=== PATIENT | male | born 1955 | race Caucasian/White ===

== ENCOUNTER 2022-03-14 21:51 | Emergency (ER) | payer MEDICARE, OTHER ==
[~2022-03-14] VITALS: Ht 175.3 cm; Wt 95.3 kg
--- NOTE | 2022-03-14 22:34 | ED General ---
General Chief Complaint: General Problems/Pain Stated Complaint: WHOLE L SIDE PAIN History of Present Illness Date Seen by Provider: Mar 14, 2022 Time Seen by Provider: 22:23 Initial Comments 67-year-old male with no known significant PMH except arthritis, and not on any medication, is here with complaints of left-sided pain and has lower neck to his feet, which began Monday (3 days ago). Patient has been having associated ear pain which is more on the left since Monday. Patient states that he also has tingling in his left upper and lower extremities since Monday. Patient has been moving heavy furniture all day on Monday and Monday. 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 Today patient feels tired and is able to ambulate, but very slowly. Denies chest pain, shortness of breath, dizziness, headache, fever, cough, diarrhea, abdominal pain Allergies and Home Medications Allergies Coded Allergies: No Known Drug Allergies (Unverified , 03/15/22) Patient Home Medication List Home Medication List Reviewed: Yes Review of Systems Review of Systems Constitutional: no symptoms reported EENTM: no symptoms reported Respiratory: no symptoms reported Cardiovascular: no symptoms reported Gastrointestinal: no symptoms reported Genitourinary: no symptoms reported Musculoskeletal: joint pain, muscle pain, muscle stiffness, muscle weakness Skin: no symptoms reported Psychiatric/Neurological: Tingling Hematologic/Lymphatic: No Symptoms Reported Immunological/Allergic: no symptoms reported Past Umawbvb-Nahwmn-Qszkba Hx Patient Social History Tobacco Use?: Yes Tobacco type used: Cigarettes Smoking Status: Current Everyday Smoker Use of E-Cig and/or Vaping dev: No Substance use?: No Alcohol Use?: No Pt feels they are or have been: No Immunizations Up To Date Influenza Vaccine Up-to-Date: No; Not Current First/Initial COVID19 Vaccinat: N/A Past Medical History Surgery/Hospitalization HX: DENIES Physical Exam Vital Signs Vital Signs - First Documented 03/14/22 22:07 Temp 36.6 Pulse 80 Resp 15 B/P (MAP) 174/90 (118) Pulse Ox 97 O2 Delivery Room Air Capillary Refill : Height, Weight, BMI Height: '" Weight: lbs. oz. kg; BMI Method: General Appearance: No Apparent Distress, WD/WN HEENT: PERRL/EOMI, Pharynx Normal, Moist Mucous Membranes, Other (mild TM erythema bilaterally ) Neck: Full Range of Motion, Normal Inspection, Non Tender, Supple Respiratory: Chest Non Tender, Lungs Clear, Normal Breath Sounds Cardiovascular: Regular Rate, Rhythm, No Edema, No Murmur Gastrointestinal: Normal Bowel Sounds, Non Tender, Soft Back: Normal Inspection, No CVA Tenderness, No Vertebral Tenderness Extremity: Normal Inspection, Normal Range of Motion, Non Tender, No Calf Tenderness, No Pedal Edema Neurologic/Psychiatric: Alert, Oriented x3, No Motor/Sensory Deficits, Normal Mood/Affect, lidder II-XII Norm as Tested Skin: Normal Color Lymphatic: No Adenopathy Progress/Results/Core Measures Suspected Sepsis SIRS Temperature: Pulse: Respiratory Rate: Laboratory Tests 03/14/22 22:15: White Blood Count 9.2 Blood Pressure / Mean: Laboratory Tests 03/14/22 22:15: Creatinine 0.97, INR Comment 0.9, Platelet Count 221, Total Bilirubin 0.3 Results/Orders Lab Results Laboratory Tests Test 03/14/22 22:15 03/15/22 00:16 03/15/22 00:20 Range/Units White Blood Count 9.2 4.3-11.0 10^3/uL Red Blood Count 5.11 4.30-5.52 10^6/uL Hemoglobin 15.9 13.3-17.7 g/dL Hematocrit 46 40-54 % Mean Corpuscular Volume 90 80-99 fL Mean Corpuscular Hemoglobin 31 25-34 pg Mean Corpuscular Hemoglobin Concent 35 32-36 g/dL Red Cell Distribution Width 12.3 10.0-14.5 % Platelet Count 221 130-400 10^3/uL Mean Platelet Volume 9.3 9.0-12.2 fL Immature Granulocyte % (Auto) 0 % Neutrophils (%) (Auto) 62 42-75 % Lymphocytes (%) (Auto) 29 12-44 % Monocytes (%) (Auto) 7 0-12 % Eosinophils (%) (Auto) 2 0-10 % Basophils (%) (Auto) 0 0-10 % Neutrophils # (Auto) 5.7 1.8-7.8 10^3/uL Lymphocytes # (Auto) 2.7 1.0-4.0 10^3/uL Monocytes # (Auto) 0.6 0.0-1.0 10^3/uL Eosinophils # (Auto) 0.2 0.0-0.3 10^3/uL Basophils # (Auto) 0.0 0.0-0.1 10^3/uL Immature Granulocyte # (Auto) 0.0 0.0-0.1 10^3/uL Prothrombin Time 12.9 12.2-14.7 SEC INR Comment 0.9 0.8-1.4 Activated Partial Thromboplast Time 30 24-35 SEC D-Dimer 0.35 0.00-0.49 UG/ML Sodium Level 139 135-145 MMOL/L Potassium Level 4.0 3.6-5.0 MMOL/L Chloride Level 103 98-107 MMOL/L Carbon Dioxide Level 24 21-32 MMOL/L Anion Gap 12 5-14 MMOL/L Blood Urea Nitrogen 9 7-18 MG/DL Creatinine 0.97 0.60-1.30 MG/DL Estimat Glomerular Filtration Rate 87 BUN/Creatinine Ratio 9 Glucose Level 98 70-105 MG/DL Calcium Level 9.3 8.5-10.1 MG/DL Corrected Calcium 9.4 8.5-10.1 MG/DL Total Bilirubin 0.3 0.1-1.0 MG/DL Aspartate Amino Transf (AST/SGOT) 13 5-34 U/L Alanine Aminotransferase (ALT/SGPT) 12 0-55 U/L Alkaline Phosphatase 72 40-136 U/L Troponin I < 0.028 <0.028 NG/ML Total Protein 6.9 6.4-8.2 GM/DL Albumin 3.9 3.2-4.5 GM/DL Glucometer 93 70-110 MG/DL Urine Color YELLOW Urine Clarity CLEAR Urine pH 7.5 5-9 Urine Specific [place] <=1.005 1.016-1.022 Urine Protein NEGATIVE NEGATIVE Urine Glucose (UA) NEGATIVE NEGATIVE Urine Ketones NEGATIVE NEGATIVE Urine Nitrite NEGATIVE NEGATIVE Urine Bilirubin NEGATIVE NEGATIVE Urine Urobilinogen 0.2 < = 1.0 MG/DL Urine Leukocyte Esterase NEGATIVE NEGATIVE Urine RBC (Auto) NEGATIVE NEGATIVE Urine RBC NONE /HPF Urine WBC NONE /HPF Urine Squamous Epithelial Cells RARE /HPF Urine Crystals NONE /LPF Urine Bacteria NEGATIVE /HPF Urine Casts NONE /LPF Urine Mucus NEGATIVE /LPF Urine Culture Indicated NO SARS-CoV-2 RNA (RT-PCR) Not Detected Not Detecte My Orders Orders - MARCELLA SHERIDAN MD Cbc With Automated Diff (03/14/22 22:35) Protime With Inr (03/14/22 22:35) Partial Thromboplastin Time (03/14/22 22:35) Comprehensive Metabolic Panel (03/14/22 22:35) Fibrin Degradation Products (03/14/22 22:35) Troponin I [place] (03/14/22 22:35) Ua Culture If Indicated (03/14/22 22:35) Chest 1 View, Ap/Pa Only (03/14/22 22:35) Ekg Tracing (03/14/22 22:35) Accucheck Stat ONCE (03/14/22 22:35) Ed Iv/Invasive Line Start (03/14/22 22:35) Vital Signs Stroke Patient Q15M (03/14/22 22:35) Monitor-Rhythm Ecg Trace Only (03/14/22 22:35) Dysphagia Screening Tool Q10MX1 (03/14/22 22:35) Ct Head/Cervical Spine Wo (03/14/22 22:34) Covid 19 Inhouse Test (03/15/22 00:06) Ct Angio Head/Neck (03/15/22 00:01) Iohexol Injection (Omnipaque 350 Mg/Ml 1 (03/15/22 01:00) Sodium Chloride Flush (Catheter Flush Sy (03/15/22 01:00) Ns (Ivpb) (Sodium Chloride 0.9% Ivpb Bag (03/15/22 01:00) Medications Given in ED Current Medications Medications Dose Ordered Sig/Annalisa Route Start Time Stop Time Status Last Admin Dose Admin Iohexol 100 ml ONCE ONCE IV 03/15/22 01:00 03/15/22 01:01 DC 03/15/22 01:03 75 ML Sodium Chloride 10 ml NEEDED PRN IV 03/15/22 01:00 03/15/22 01:03 10 ML Sodium Chloride 100 ml ONCE ONCE IV 03/15/22 01:00 03/15/22 01:01 DC 03/15/22 01:03 80 ML Vital Signs/I&O 03/14/22 22:07 Temp 36.6 Pulse 80 Resp 15 B/P (MAP) 174/90 (118) Pulse Ox 97 O2 Delivery Room Air Capillary Refill : Progress Note : Progress Note 1. MUSCLE STRAIN: - Ibuprofen as needed pain, Lidoderm patch which is available [id number] -Follow-up with PCP within the next 3 days. -Patient is ruled out for stroke 2. STROKE RULE OUT: - CT HEAD & NECK WITHOUT CONTRAST: no acute findings except degeneration of C5- C6 - CTA HEAD/ NECK: normal - Troponin & EKG: non-acute - Labs unremarkable - CXR: unremarkable Diagnostic Imaging Diagonstic Imaging: CT Plain Films/CT/US/NM/MRI: head Comments [facility], [place] NAME: JUAN CARLOS ROSARIO [facility] REC#: [id number] PT STATUS: REG ER : 1955 PHYSICIAN: MARCELLA SHERIDAN MD ADMIT DATE: 03/14/22/ER Draft Date of Exam:03/14/22 CT HEAD/CERVICAL SPINE WO PROCEDURE: CT head and CT cervical spine without contrast. TECHNIQUE: Multiple contiguous axial images were obtained through the brain and cervical spine without the use of intravenous contrast. Sagittal and coronal reformations through the cervical spine were then performed. Auto Exposure Controls were utilized during the CT exam to meet ALARA standards for radiation dose reduction. DATE: March 14, 2022. COMPARISON: None. INDICATION: 67-year-old male, left-sided pain and weakness. Tingling of the head and neck. Severe headache. FINDINGS: The ventricles and cerebral spinal fluid spaces are of normal size and configuration for the patient's age. There is no mass effect or midline shift. There is no acute intracranial hemorrhage. There is no abnormal extra-axial fluid collection. The visualized portions of the paranasal sinuses, mastoid air cells and middle ears are well aerated. There is no identified facet joint subluxation or dislocation. There is no asymmetric widening of the cervical disc spaces. There is no prominent prevertebral soft tissue swelling. There is mild disc height loss at C4-C5 and C5-C6. There is a posterior disc osteophyte complex at C5-C6. CT is limited for assessment of disc pathology as well as additional non-bony causes of pathology in the spinal canal. There is no identified acute fracture of the cervical spine. The visualized portions of the lung apices are grossly clear. There are carotid vascular calcifications on the left. IMPRESSION: 1. No identified acute intracranial abnormality. 2. No identified acute abnormality of the cervical spine. 3. Disc degenerative changes of the cervical spine most notable at C5-C6. Dictated on workstation # [id number] Dict: 03/14/22 2257 Trans: 03/14/22 2304 [id number] Interpreted by: KIARA LOONEY MD Electronically signed by: Departure Impression Primary Impression: Strain of muscle, fascia and tendon of lower back, initial encounter Additional Impression: Disease ruled out after examination Disposition: HOME, SELF-CARE Condition: Stable Departure-Patient Inst. Referrals: NO,LOCAL PHYSICIAN (PCP/Family) Primary Care Physician Patient Instructions: Back Muscle Strain (DC), Back Muscle Strain, Muscle Strain ED Add. Discharge Instructions: Ibuprofen as needed pain, Lidoderm patch which is available [id number] -Follow-up with PCP within the next 3 days. -Patient is ruled out for stroke -Return to ER symptoms worsen or continue All discharge instructions reviewed with patient and/or family. Voiced underst anding. MARCELLA SHERIDAN MD Mar 14, 2022 22:34
[2022-03-14 22:42] LABS: BASOPHILS % (AUTO) 0 % (0-10); EOSINOPHILS # (AUTO) 0.2 10^3/uL (0.0-0.3); EOSINOPHILS % (AUTO) 2 % (0-10); HEMATOCRIT 46 % (40-54); HEMOGLOBIN 15.9 g/dL (13.3-17.7); LYMPHOCYTES # (AUTO) 2.7 10^3/uL (1.0-4.0); LYMPHOCYTES % (AUTO) 29 % (12-44); MEAN CORPUSCULAR HEMOGLOBIN 31 pg (25-34); MEAN CORPUSCULAR HGB CONC 35 g/dL (32-36); MEAN CORPUSCULAR VOLUME 90 fL (80-99); MEAN PLATELET VOLUME 9.3 fL (9.0-12.2); MONOCYTES # (AUTO) 0.6 10^3/uL (0.0-1.0); MONOCYTES % (AUTO) 7 % (0-12); NEUTROPHILS # (AUTO) 5.7 10^3/uL (1.8-7.8); NEUTROPHILS % (AUTO) 62 % (42-75); PLATELET COUNT 221 10^3/uL (130-400); WHITE BLOOD COUNT 9.2 10^3/uL (4.3-11.0)
[2022-03-14 22:51] LABS: ALBUMIN 3.9 GM/DL (3.2-4.5); CHLORIDE 103 MMOL/L (98-107); SODIUM 139 MMOL/L (135-145)
[2022-03-14 22:52] LABS: CALCIUM 9.3 MG/DL (8.5-10.1)
[2022-03-14 22:53] LABS: GLUCOSE 98 MG/DL (70-105); TOTAL PROTEIN 6.9 GM/DL (6.4-8.2)
[2022-03-14 22:54] LABS: CARBON DIOXIDE 24 MMOL/L (21-32)
[2022-03-14 22:55] LABS: BILIRUBIN,TOTAL 0.3 MG/DL (0.1-1.0)
[2022-03-14 22:57] LABS: ALKALINE PHOSPHATASE 72 U/L (40-136); CREATININE SERUM 0.97 MG/DL (0.60-1.30); GFR ESTIMATED 87
[2022-03-14 22:58] LABS: BUN/CREATININE RATIO 9
[2022-03-14 23:00] LABS: ALANINE AMINOTRANSFERASE 12 U/L (0-55)
--- NOTE | 2022-03-14 23:05 | Diagnostic Imaging Report ---
PROCEDURE: CT head and CT cervical spine without contrast. TECHNIQUE: Multiple contiguous axial images were obtained through the brain and cervical spine without the use of intravenous contrast. Sagittal and coronal reformations through the cervical spine were then performed. Auto Exposure Controls were utilized during the CT exam to meet ALARA standards for radiation dose reduction. DATE: March 14, 2022. COMPARISON: None. INDICATION: 67-year-old male, left-sided pain and weakness. Tingling of the head and neck. Severe headache. FINDINGS: The ventricles and cerebral spinal fluid spaces are of normal size and configuration for the patient's age. There is no mass effect or midline shift. There is no acute intracranial hemorrhage. There is no abnormal extra-axial fluid collection. The visualized portions of the paranasal sinuses, mastoid air cells and middle ears are well aerated. There is no identified facet joint subluxation or dislocation. There is no asymmetric widening of the cervical disc spaces. There is no prominent prevertebral soft tissue swelling. There is mild disc height loss at C4-C5 and C5-C6. There is a posterior disc osteophyte complex at C5-C6. CT is limited for assessment of disc pathology as well as additional non-bony causes of pathology in the spinal canal. There is no identified acute fracture of the cervical spine. The visualized portions of the lung apices are grossly clear. There are carotid vascular calcifications on the left. IMPRESSION: 1. No identified acute intracranial abnormality. 2. No identified acute abnormality of the cervical spine. 3. Disc degenerative changes of the cervical spine most notable at C5-C6. Dictated by: Dictated on workstation # [id number]
[2022-03-14 23:14] LABS: FIBRIN DEGRADATION PRODUCTS 0.35 UG/ML (0.00-0.49); INR 0.9 (0.8-1.4); PROTHROMBIN TIME PATIENT 12.9 SEC (12.2-14.7)
[2022-03-15 00:27] LABS: BILIRUBIN,URINE NEGATIVE (NEGATIVE); CLARITY,URINE CLEAR; COLOR,URINE YELLOW; GLUCOSE, URINE (UA) NEGATIVE (NEGATIVE); KETONES,URINE NEGATIVE (NEGATIVE); LEUKOCYTE ESTERASE ,URINE NEGATIVE (NEGATIVE); NITRITE,URINE NEGATIVE (NEGATIVE); PH,URINE 7.5 (5-9); PROTEIN,URINE NEGATIVE (NEGATIVE)
[2022-03-15 00:54] LABS: BACTERIA,URINE NEGATIVE /HPF; SQUAMOUS EPITHELIAL CELL,UR RARE /HPF
[2022-03-15] MEDS ORDERED: NS 100 ML (IVPB) BAG IV ONE (01:00)
[2022-03-15] MEDS ORDERED: CATHETER FLUSH 10 ML SYR IV PRN (01:00)
[2022-03-15] MEDS ORDERED: IOHEXOL 350 MG/ML 100 ML (OMNIPAQUE 350) VIAL IV ONE (01:00)
[2022-03-15 03:49] VITALS: BP 147/91
--- NOTE | 2022-03-15 06:42 | Diagnostic Imaging Report ---
Indication: Left-sided chest pain Portable chest 11:03 PM Heart and mediastinum are normal. Lungs are clear. There are no effusions or pneumothoraces. IMPRESSION: No acute abnormalities in the chest. Dictated by: Dictated on workstation # [id number]
--- NOTE | 2022-03-15 08:03 | Diagnostic Imaging Report ---
PROCEDURE: CT angiography of the head and CT angiography of the neck with and without contrast. TECHNIQUE: Contiguous noncontrast images were obtained from the skull base through the vertex. After intravenous contrast administration, helical CT angiography of the neck was performed. Source data was reformatted into 3D MIP projections. Delayed post contrast acquisition was also obtained. Auto Exposure Controls were utilized during the CT exam to meet ALARA standards for radiation dose reduction. INDICATION: 67-year-old male with left-sided pain, weakness with tingling from the neck to toes on the left side. COMPARISONS: CT head 03/14/2022 FINDINGS: There is a normal arch origin of great vessels. Both common carotid arteries are widely patent. There is some mixed plaque at the bifurcations but no evidence of hemodynamically significant stenosis. The cervical, high cervical, petrous, cavernous and supraclinoid segment of both ICA are widely patent. There is bilateral carotid siphon disease with calcific atherosclerosis, but no evidence of hemodynamically significant stenosis. A1 and A2 segments of both MELVI, M1, M2 and M3 trifurcation vessels of both MCA are unremarkable. The vertebral arteries are codominant and are patent to the skull base. The PICA, basilar artery, AICA and SCA and bath house attendant show contrast opacification. There is origin of the left SPEEDER OPERATOR normal variation. There is no large vessel or medium vessel occlusion seen. Distal small vessel disease may be present. Lung apices are essentially clear. There is some hilar calcified lymph nodes is seen with previous granulomatous disease. Superior mediastinum is unremarkable. Parapharyngeal and paraspinous soft tissues are also normal. There is [id number] cervical spondylosis age-appropriate. IMPRESSION: 1. Bilateral carotid bifurcation disease with mixed plaque but no evidence of hemodynamically significant stenosis. 2. Some bilateral carotid siphon disease with calcified plaque but no evidence of hemodynamically significant stenosis. 3. There is no large vessel or medium vessel occlusion seen in the intracranial circulation with no significant large vessel or medium vessel atherosclerotic changes. Distal small vessel disease may be present. 4. There is calcified hilar lymph nodes from previous granulomatous disease. 5. Moderate cervical spondylosis. Additional nonemergent findings as described above. Dictated by: Dictated on workstation # [id number]
== END 2022-03-15 03:49 | disposition home or self-care (01) ==
LOC: ER 21:55
DX: S39.012A Strain of muscle, fascia and tendon of lower back, initial encounter (principal); F17.210 Nicotine dependence, cigarettes, uncomplicated; Z28.310 Unvaccinated for COVID-19; Z20.822 Contact with and (suspected) exposure to COVID-19; X50.0XXA Overexertion from strenuous movement or load, initial encounter
CPT/HCPCS: 36415; 70450; 70496; 70498; 71045; 72125; 80053; 81000; 82947; 84484; 85025; 85379; 85610; 85730; 87636; 93005